=== PATIENT | male | born 1980 | race American Indian/Alaskan Native ===

== ENCOUNTER 2018-09-16 13:52 | Emergency (ER) | payer BC ==
--- NOTE | 2018-09-16 15:57 | C.PDOC ---
History Of Present Illness 38 y/o male presents to the ED complaining of right-sided dental pain and swelling for the last 3 days. This morning he woke up with increased right facial swelling as well, prompting him to come in. Patient states he had a similar dental issue with his upper right premolar tooth 6 months ago. He was seen by a dentist and states they patched the tooth. Patient has not recently followed up with the dentist. He denies any fever or chills. Pain is described as 10/10, shooting up into his head. Time Seen by Provider: 09/16/18 15:20 Chief Complaint (Nursing): Dental Pain History Per: Patient History/Exam Limitations: no limitations Onset/Duration Of Symptoms: Days (x3) Current Symptoms Are (Timing): Still Present Severity: Moderate Past Medical History Reviewed: Historical Data, Nursing Documentation, Vital Signs Vital Signs: Last Vital Signs Temp 99 F 09/16/18 14:14 Pulse 85 09/16/18 14:14 Resp 18 09/16/18 14:14 BP 119/78 09/16/18 14:14 Pulse Ox 98 09/16/18 14:14 - Medical History PMH: No Chronic Diseases Surgical History: No Surg Hx Family History: States: No Known Family Hx - Social History Hx Tobacco Use: No Hx Alcohol Use: Yes Hx Substance Use: No - Immunization History Hx Tetanus Toxoid Vaccination: No Hx Influenza Vaccination: No Hx Pneumococcal Vaccination: No Review Of Systems Constitutional: Negative for: Fever, Chills ENT: Positive for: Mouth Swelling, Other (Right-sided dental pain and swelling). Negative for: Throat Pain Respiratory: Negative for: Shortness of Breath Gastrointestinal: Negative for: Nausea, Vomiting Neurological: Negative for: Headache, Dizziness Physical Exam - Physical Exam Appears: Non-toxic, No Acute Distress Skin: Warm, Dry Head: Atraumatic, Normacephalic Eye(s): bilateral: Normal Inspection Oral Mucosa: Moist Teeth: Caries (Right upper 1st premolar tooth w/ significant dental decay, + localized swelling) Gingiva: No Bleeding, Abscess (near the 1st right upper premolar tooth) Throat: Normal, No Erythema, No Exudate Neck: Normal ROM, Supple Chest: Symmetrical Respiratory: No Accessory Muscle Use, Other (Speaking in full sentences) Neurological/Psych: Oriented x3, Normal Speech ED Course And Treatment O2 Sat by Pulse Oximetry: 98 (RA) Pulse Ox Interpretation: Normal Medical Decision Making Medical Decision Making: Plan: Patient counseled regarding diagnosis and the need for follow up with dentist. Plan is for discharge home, provided with prescriptions for penicillin, tylenol, and motrin. Disposition Counseled Patient/Family Regarding: Diagnosis, Need For Followup, Rx Given - Disposition Disposition: HOME/ ROUTINE Disposition Time: 15:55 Condition: STABLE Additional Instructions: You must follow up with your dentist tomorrow without fail. Take your antibiotics as indicated. Do not drive under the influence of Tramadol. Prescriptions: Ibuprofen [Motrin] 600 mg PO TID #15 tab Penicillin VK [Penicillin VK Tab] 500 mg PO BID #20 tab traMADol/Acetaminophen [Ultracet 37.5/325 mg] 1 tab PO TID PRN #15 tab PRN Reason: pain Instructions: Tooth Abscess (DC) Forms: General Discharge Instructions, [facility] (Tristanian), Work Excuse - POA Present On Arrival: None - Clinical Impression Clinical Impression: Dental abscess - Scribe Statement The provider has reviewed the documentation as recorded by the Torito Thomas Provider Attestation: All medical record entries made by the Torito were at my direction and personally dictated by me. I have reviewed the chart and agree that the record accurately reflects my personal performance of the history, physical exam, medical decision making, and the department course for this patient. I have also personally directed, reviewed, and agree with the discharge instructions and disposition.
[2018-09-16 16:13] VITALS: BP 116/81; PULSE 67; RESP 20; TEMP 98.3
[2018-09-16 17:22] VITALS: O2SAT 98
== END 2018-09-16 16:23 | disposition home or self-care (01) ==
LOC: C.ER 13:52
DX: K04.7 Periapical abscess without sinus (principal)